=== PATIENT | male | born 1940 | race American Indian/Alaskan Native ===

== ENCOUNTER 2018-03-29 13:57 | Emergency (ER) | payer OTHER, MEDICARE ==
[2018-03-29] MEDS ORDERED: SUBLIMAZE IV ONE (14:45)
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
[2018-03-29 15:18] LABS: Eosinophils # (Auto) 0.2 K/mm3 (0.0-0.4); Eosinophils % (Auto) 5.3 % (0.0-4.3); Hematocrit 46.1 % (35.5-45.6); Hemoglobin 15.1 gm/dl (11.8-15.2); Lymphocytes # (Auto) 1.2 K/mm3 (1.2-5.4); Lymphocytes % (Auto) 29.6 % (13.4-35.0); Mean Corpuscular HGB Conc 33 % (32-34); Mean Corpuscular Hemoglobin 27 pg (28-32); Mean Corpuscular Volume 81 fl (84-94); Monocytes # (Auto) 0.4 K/mm3 (0.0-0.8); Monocytes % (Auto) 10.4 % (0.0-7.3); Platelet Count 217 K/mm3 (140-440); Red Blood Count 5.67 M/mm3 (3.65-5.03); Red Cell Distribution Width 14.4 % (13.2-15.2)
[2018-03-29 15:45] LABS: Calcium 9.7 mg/dL (8.4-10.2)
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
[2018-03-29] MEDS ORDERED: CARDENE 50 MG in NACL 0.9% 250ML 230 ML IV SCH (17:00)
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
[2018-03-29 18:39] VITALS: BP 174/69
== END 2018-03-29 18:47 | disposition short-term general hospital (02) ==
LOC: ED 13:57
DX: S06.6X0A Traumatic subarachnoid hemorrhage without loss of consciousness, initial encounter (principal); I10 Essential (primary) hypertension; E11.9 Type 2 diabetes mellitus without complications; M19.90 Unspecified osteoarthritis, unspecified site; Z87.891 Personal history of nicotine dependence; Z79.4 Long term (current) use of insulin; Z79.82 Long term (current) use of aspirin; Z88.8 Allergy status to other drugs, medicaments and biological substances; X58.XXXA Exposure to other specified factors, initial encounter; Y93.89 Activity, other specified; Y92.89 Other specified places as the place of occurrence of the external cause; Y99.8 Other external cause status
CPT/HCPCS: 36415; 70450; 71045; 72125; 72128; 80048; 82550; 85025; 93005; 93010; 96365; 96375; 99291; J3010; J7050

== ENCOUNTER 2020-08-20 17:19 | Emergency (ER) | payer MEDICARE, OTHER ==
[2020-08-20] MEDS ORDERED: cloNIDine 0.2 MG TAB PO STA (17:54)
--- NOTE | 2020-08-20 17:54 | Emergency Department Report ---
Blank Doc - Documentation Documentation: [age]-year-old male past no history of hypertension presents emerged department complaining of headache associated with dizziness which began while he was at the doctor's office to be evaluated for cataracts. While there he received multiple rounds of hydralazine IV and Lopressor with minimal improvement of his blood pressure and was advised to come to the emergency department. Initially he stated he states he was asymptomatic at the discovery of his blood have his hypertension but since that time symptoms have begin to emerge. He reports no palpitations no syncope This initial assessment/diagnostic orders/clinical plan/treatment(s) is/are subject to change based on patients health status, clinical progression and re- assessment by fellow clinical providers in the ED. Further treatment and workup at subsequent clinical providers discretion. Patient/guardian urged not to elope from the ED as their condition may be serious if not clinically assessed and managed. Initial orders include: CT scan and hypertensive evaluation
--- NOTE | 2020-08-20 18:15 | XRay Report ---
CHEST PA AND LATERAL VIEWS INDICATION: Chest Pain. COMPARISON: 03/29/2018 FINDINGS: Support devices: None. Heart: Within normal limits. Lungs/Pleura: No acute pulmonary or pleural findings. IMPRESSION: 1. No acute findings. Signer Name: Nikita Aguiar MD Signed: 08/20/2020 6:11 PM Workstation Name: [id number]
--- NOTE | 2020-08-20 18:36 | Cat Scan Report ---
CT head/brain wo con INDICATION: Dizziness and hypertension. TECHNIQUE: Routine CT head without contrast. All CT scans at this location are performed using CT dos e reduction for ALARA by means of automated exposure control. COMPARISON: Head CT on 03/29/2018 FINDINGS: BRAIN / INTRACRANIAL CONTENTS: No acute hemorrhage, mass effect, midline shift, or hydrocephalus. No appreciable acute large territorial or lacunar infarct. There is a chronic lacunar infarct in the lef t frontal periventricular white matter. Ventricular and cisternal size is normal for age. ORBITS: No significant abnormality of visualized orbits. SINUSES / MASTOIDS: No significant abnormality of visualized sinuses and mastoid air cells. ADDITIONAL FINDINGS: None. IMPRESSION: 1. No acute intracranial abnormality. Signer Name: Yang Mart MD Signed: 08/20/2020 6:31 PM Workstation Name: [id number]
[2020-08-20 18:42] LABS: Basophils % (Auto) 0.5 % (0.0-1.8); Eosinophils # (Auto) 0.3 K/mm3 (0.0-0.4); Eosinophils % (Auto) 5.9 % (0.0-4.3); Hematocrit 41.2 % (35.5-45.6); Hemoglobin 13.3 gm/dl (11.8-15.2); Mean Corpuscular HGB Conc 32 % (32-34); Mean Corpuscular Volume 82 fl (84-94); Monocytes # (Auto) 0.7 K/mm3 (0.0-0.8); Monocytes % (Auto) 11.4 % (0.0-7.3); Platelet Count 198 K/mm3 (140-440); Red Blood Count 5.04 M/mm3 (3.65-5.03); Red Cell Distribution Width 14.7 % (13.2-15.2)
[2020-08-20 18:52] LABS: Alanine Aminotransferase 12 units/L (7-56); Albumin 3.6 g/dL (3.9-5); BUN/Creatinine Ratio 9; Blood Urea Nitrogen 13 mg/dL (9-20); Calcium 9.5 mg/dL (8.4-10.2); Hemolysis Index 8
--- NOTE | 2020-08-20 23:37 | Emergency Department Report ---
HPI - General Chief Complaint: High BP PUI?: No Time Seen by Provider: 08/20/20 23:26 - HPI HPI: Room 29 The patient is a 80-year-old male present with a chief complaint of hypertension. The patient states he was at the [facility] today for cataract surgery while in preop he was found to be hypertensive. Patient was given 3 rounds of hydralazine and 1 round of labetalol but remained hypertensive. Subsequently the surgery was not performed and the patient was sent to the ED for further management of his blood pressure. Patient states he he was initially asymptomatic but is since being in the ED he developed a headache and slight dizziness. Patient denies nausea or vomiting. ED Past Medical Hx - Past Medical History Previous Medical History?: Yes Hx Hypertension: Yes (2009) Hx Diabetes: Yes (type 2) Hx Arthritis: Yes (back and fingers) - Surgical History Past Surgical History?: Yes Hx Coronary Stent: Yes (x2 to LAD) Additional Surgical History: heart cath 09/18/14 - Family History Family history: no significant - Social History Smoking Status: Former Smoker (None since ) Substance Use Type: None (Denies illicit drug use) - Medications Home Medications: Home Medications Medication Instructions Recorded Confirmed Last Taken Type Albuterol Sulfate [Proventil HFA] 1 - 2 puff IH Q4H PRN #1 hfa.aer.ad 10/23/14 07/26/15 07/25/15 Rx Aspirin EC [Ecotrin] 325 mg PO QDAY 07/26/15 07/26/15 07/26/15 06:30 History AtorvaSTATin 10 mg PO QDAY 07/26/15 07/26/15 07/25/15 History Clopidogrel Bisulfate [Plavix] 75 mg PO QDAY 07/26/15 07/26/15 07/26/15 06:30 History Diovan Hct 320-25 mg 1 tab PO QDAY 07/26/15 07/26/15 07/25/15 History ISOSORBIDE MONOnitrate 30 mg PO QDAY 07/26/15 07/26/15 07/25/15 History Insulin Aspart (Nf) [NovoLOG 7 units SQ AC 07/26/15 07/26/15 07/25/15 History Flexpen] Insulin Glargine,Hum.rec.anlog 30 units SUB-Q QAM 07/26/15 07/26/1507/25/16 History [Lantus Solostar] Metoprolol [Lopressor TAB] 25 mg PO QDAY 07/26/15 07/26/15 07/25/15 History Butalb/Acetamin/Caff 50-325-40 2 tab PO Q8HR PRN #10 tablet 08/21/20 Unknown Rx [Fioricet 50-325-40] ED Review of Systems ROS: Stated complaint: HIGH BLOOD PRESSURE Other details as noted in HPI Constitutional: no symptoms reported Eyes: denies: eye pain ENT: denies: throat pain Respiratory: no symptoms reported Cardiovascular: denies: chest pain Endocrine: no symptoms reported Gastrointestinal: denies: nausea, vomiting Genitourinary: denies: dysuria Musculoskeletal: denies: back pain Neurological: headache, other (Lightheadedness) Physical Exam - Physical Exam Vital Signs: Vital Signs 08/20/20 17:49 Temperature 97.9 F Pulse Rate 72 Respiratory 18 Rate Blood Pressure 202/78 [Right] O2 Sat by Pulse 98 Oximetry Physical Exam: GENERAL: The patient is well-developed well-nourished male sitting in chair not appearing to be in acute distress. [] HEENT: Normocephalic. Atraumatic. Extraocular motions are intact. Patient has moist mucous membranes. NECK: Supple. Trachea midline CHEST/LUNGS: Clear to auscultation. There is no respiratory distress noted. HEART/CARDIOVASCULAR: Regular. There is no tachycardia. There is no gallop rub or murmur. ABDOMEN: Abdomen is soft, nontender. Patient has normal bowel sounds. There is no abdominal distention. SKIN: There is no rash. There is no edema. There is no diaphoresis. NEURO: The patient is awake, alert, and oriented. The patient is cooperative. The patient has no focal neurologic deficits. The patient has normal speech. Cranial nerves II through XII grossly intact MUSCULOSKELETAL: There is no evidence of acute injury. ED Course Vital Signs 08/20/20 17:49 Temperature 97.9 F Pulse Rate 72 Respiratory 18 Rate Blood Pressure 202/78 [Right] O2 Sat by Pulse 98 Oximetry - Reevaluation(s) Reevaluation #1: 08/21/20 02:34 BP 149/80 ED Medical Decision Making - Lab Data Result diagrams: 08/20/20 18:12 08/20/20 18:12 - Radiology Data Radiology results: report reviewed (CT head, chest x-ray), image reviewed (CT head, chest x-ray) interpreted by me: Chest x-ray-no focal infiltrates, no pneumothorax. No foreign body seen Findings [address] [address] Cat Scan Report Signed Patient: LUPE ONEAL MR#: [id number] 1 : 1940 Acct:[id number] Age/Sex: 80 / M ADM Date: 08/20/20 Loc: ED Attending Dr: Ordering Physician: EBONY BERMEO Date of Service: 08/20/20 Proce dure(s): CT head/brain wo con Accession Number(s): [id number] cc: EBONY BERMEO CT head/brain wo con INDICATION: Dizziness and hypertension. TECHNIQUE: Routine CT head without contrast. All CT scans at this location are performed using CT dose reduction for ALARA by means of automated exposure control. COMPARISON: Head CT on 03/29/2018 FINDINGS: BRAIN / INTRACRANIAL CONTENTS: No acute hemorrhage, mass effect, midline shift, or hydrocephalus. No appreciable acute large territorial or lacunar infarct. There is a chronic lacunar infarct in the left frontal periventricular white matter. Ventricular and cisternal size is normal for age. ORBITS: No significant abnormality of visualized orbits. SINUSES / MASTOIDS: No significant abnormality of visualized sinuses and mastoid air cells. ADDITIONAL FINDINGS: None. IMPRESSION: 1. No acute intracranial abnormality. Signer Name: Yang Mart MD Signed: 08/20/2020 6:31 PM Workstation Name: [id number] Transcribed By: FERNANDO Dictated By: Yang Mart MD Electronically Authenticated By: Yang Mart MD Signed Date/Time: 08/20/201830 DD/ 30 TD/TT: Findings [address] [address] XRay Report Signed Patient: LUPE ONEAL MR#: [id number] 1 : 1940 Acct:[id number] Age/Sex: 80 / M ADM Date: 08/20/20 Loc: ED Attending Dr: Ordering Physician: EBONY BERMEO Date of Service: 08/20/20 Procedure(s): XR chest routine 2V Accession Number(s): [id number] cc: EBONY BERMEO Fluoro Time In Minutes: CHEST PA AND LATERAL VIEWS INDICATION: Chest Pain. COMPARISON: 03/29/2018 FINDINGS: Support devices: None. Heart: Within normal limits. Lungs/Pleura: No acute pulmonary or pleural findings. I MPRESSION: 1. No acute findings. Signer Name: Nikita Aguiar MD Signed: 08/20/2020 6:11 PM Workstation Name: [id number] Transcribed By: SW Dictated By: Nikita Aguiar MD Electronically Authenticated By: Nikita Aguiar MD Signed Date/Time: 08/20/201810 DD/ 09 TD/TT: - Differential Diagnosis Hypertension, hypertensive urgency, hypertensive emergency Critical care attestation.: If time is entered above; I have spent that time in minutes in the direct care of this critically ill patient, excluding procedure time. ED Disposition Clinical Impression: Hypertension, Headache Disposition: DC-01 TO HOME OR SELFCARE Is pt being admited?: No Does the pt Need Aspirin: No Condition: Stable Instructions: Hypertension (ED) Additional Instructions: Return to the emergency department should you develop worsening symptoms, inability to tolerate food or liquids, high fever or any other concerns Prescriptions: Butalb/Acetamin/Caff 50-325-40 [Fioricet 50-325-40] 2 tab PO Q8HR PRN #10 tablet PRN Reason: Headache Referrals: TIFFANY SANTIAGO MD [Primary Care Provider] - 3-5 Days Time of Disposition: 02:35
[2020-08-20] MEDS ORDERED: cloNIDine 0.2 MG TAB PO ONE (23:43)
[2020-08-21] MEDS ORDERED: SODIUM CHLORIDE 0.9% 1000 ML 1,000 ML IV ONE ×2 (01:47→02:00)
[2020-08-21 03:06] VITALS: BP 148/77
== END 2020-08-21 03:06 | disposition home or self-care (01) ==
LOC: ED 17:19
DX: I10 Essential (primary) hypertension (principal); R51.9 Headache, unspecified; R42 Dizziness and giddiness; E11.9 Type 2 diabetes mellitus without complications; M19.91 Primary osteoarthritis, unspecified site; Z98.890 Other specified postprocedural states; Z79.4 Long term (current) use of insulin; Z79.899 Other long term (current) drug therapy; Z88.8 Allergy status to other drugs, medicaments and biological substances
CPT/HCPCS: 36415; 70450; 71046; 80053; 84484; 85025; 99285; J7030